=== PATIENT | female | born 1960 | race Caucasian/White ===

== ENCOUNTER 2017-04-12 05:34 | Inpatient (IN) | payer OTHER ==
[2017-04-12] MEDS: LACTATED RINGER'S 1,000 ML IV* (05:30)
[2017-04-12] MEDS ORDERED: GELATIN SIZE 100 SPONGE (07:08)
[2017-04-12] MEDS ORDERED: ROCURONIUM 50 MG INJ (07:28)
[2017-04-12] MEDS ORDERED: MIDAZOLAM 1 MG/ML 2 ML INJ (07:28)
[2017-04-12] MEDS ORDERED: PROPOFOL 20 ML (07:28)
[2017-04-12] MEDS ORDERED: CEFAZOLIN 1 GM INJ (07:28)
[2017-04-12] MEDS ORDERED: DEXAMETHASONE 4 MG/ML 1 ML INJ (07:28)
[2017-04-12] MEDS ORDERED: ONDANSETRON 4 MG INJ (07:28)
[2017-04-12] MEDS ORDERED: GLYCOPYRROLATE 0.4 MG INJ (07:28)
[2017-04-12] MEDS ORDERED: NEOSTIGMINE 3 MG/3 ML SYRINGE (07:28)
[2017-04-12] MEDS: BUPIVACAINE 0.25%/EPI (SDV) 30 ML INJ (08:44)
[2017-04-12] MEDS: POLYMYXIN/BACITRACIN 1L IRRIG (08:44)
[2017-04-12] MEDS: THROMBIN 5000 UNIT VIAL (08:44)
[2017-04-12] MEDS ORDERED: hydrALAzine 20 MG INJ IV (09:00)
[2017-04-12] MEDS ORDERED: ALBUTEROL 0.083% (NEB) 2.5 MG/3 ML AMP HHN (09:00)
[2017-04-12] MEDS ORDERED: HYDROmorphONE (0.2 MG/ML) 10ML SYG IV ×2 (09:00)
[2017-04-12] MEDS ORDERED: EPHEDrine SULFATE 50 MG/5 ML SYG IV (09:00)
[2017-04-12] MEDS ORDERED: IPRATROPIUM (NEB) 0.5 MG/2.5 ML AMP HHN (09:00)
[2017-04-12] MEDS ORDERED: OXYCODONE/ACETAMINOPHEN (5/325) TAB PO ×2 (09:00)
[2017-04-12] MEDS ORDERED: FENTAnyl 50 MCG/ML VIAL IV ×2 (09:00)
[2017-04-12] MEDS ORDERED: TRIMETHOBENZAMIDE 100 MG/ML VIAL IM (09:00)
[2017-04-12] MEDS ORDERED: LABETALOL HCL 20MG INJ IV (09:00)
[2017-04-12] MEDS ORDERED: DIPHENHYDRAMINE 50 MG INJ IV (09:00)
[2017-04-12] MEDS ORDERED: SUGAMMADEX SODIUM 200 MG/2 ML VIAL IV (11:59)
[2017-04-12] MEDS ORDERED: LABETALOL HCL 20MG INJ (11:59)
[2017-04-12] MEDS: VANCOMYCIN 1 GM (PMX) 250 ML IVPB ×2 (12:30→21:03)
[2017-04-12] MEDS ORDERED: HYDROCODONE/APAP (5/325) TAB PO (12:30)
[2017-04-12] MEDS ORDERED: ONDANSETRON 4 MG INJ IV (12:30)
[2017-04-12] MEDS ORDERED: NALOXONE (0.4 MG/ML) INJ IV (12:30)
[2017-04-12] MEDS ORDERED: morphine 1 MG/ML 30 ML (PCA) IV (12:30)
[2017-04-12] MEDS: FENTAnyl 50 MCG/ML VIAL IV (13:27)
[2017-04-12] MEDS: MIDAZOLAM 1 MG/ML 2 ML INJ IV (13:28)
[2017-04-12] MEDS: ONDANSETRON 4 MG INJ IV (13:28)
[2017-04-12] MEDS: MEPERIDINE 25 MG INJ IV (13:28)
[2017-04-12] MEDS: HYDROmorphONE 0.2 MG/ML PCA IV (13:40)
[2017-04-12] MEDS: HYDROmorphONE (0.2 MG/ML) 10ML SYG IV (14:42)
[2017-04-12] MEDS ORDERED: ONDANSETRON 4 MG TAB PO (18:00)
[2017-04-12] MEDS ORDERED: ZOLPIDEM 5 MG TAB PO (18:00)
[2017-04-12] MEDS: TIOTROPIUM 18 MCG CAPSULE INHA DEV INH (18:00)
[2017-04-12] MEDS: CALCIUM CARBONATE 1.25 GM TAB PO (21:00)
[2017-04-12] MEDS: SALMETEROL/FLUTICASONE 250/50 INHA INH (21:00)
[2017-04-12] MEDS: OXYBUTYNIN (XL) 5 MG TAB PO (21:00)
[2017-04-12] MEDS ORDERED: NON-FORMULARY/PATIENT OWN MED (Levocetirizine Dihydrochloride (Xyzal) 5 MG) PO (21:00)
[2017-04-12] MEDS: ALPRAZOLAM 1 MG TAB PO (21:38)
[2017-04-12] MEDS: DIPHENHYDRAMINE 25 MG CAP PO (21:40)
[2017-04-12] MEDS: traZODone 100 MG TAB PO (21:40)
[2017-04-12] MEDS: ATORVASTATIN 20 MG TAB PO (21:41)
[2017-04-12] MEDS: MONTELUKAST 10 MG TAB PO (21:41)
[2017-04-12] MEDS: TIZANIDINE 2 MG TAB PO (21:42)
[2017-04-13 05:48] LABS: HEMATOCRIT 35.7 % (37.0-47.0); HEMOGLOBIN 11.1 g/dl (12.0-16.0)
[2017-04-13 06:16] LABS: ANION GAP 9 (8-16); BLOOD UREA NITROGEN 10 mg/dl (7-20); CALCIUM 8.5 mg/dl (8.4-10.2); CARBON DIOXIDE 33 mmol/L (21-31); CHLORIDE 101 mmol/L (97-110); CREATININE 0.58 mg/dl (0.44-1.00); GLUCOSE 96 mg/dl (70-220); SODIUM 139 mmol/L (135-144)
[2017-04-13] MEDS: PANTOPRAZOLE (EC) 40 MG TAB PO (06:34)
[2017-04-13 06:35] LABS: IRON 34 ug/dl (35-150)
[2017-04-13 06:44] LABS: % IRON SATURATION 9 % SAT (22-52); TOTAL IRON BINDING CAPACITY 361 ug/dl (241-421)
[2017-04-13 07:51] LABS: THYROID STIMULATING HORMONE 0.519 MIU/L (0.465-4.680)
[2017-04-13 07:51] LABS: HEPATITIS B SURFACE ANTIGEN NEGATIVE (NEGATIVE)
[2017-04-13] MEDS: CALCIUM CARBONATE 1.25 GM TAB PO ×2 (08:25→21:13)
[2017-04-13] MEDS: SALMETEROL/FLUTICASONE 250/50 INHA INH ×2 (08:25→21:13)
[2017-04-13] MEDS: TIZANIDINE 2 MG TAB PO ×3 (08:26→21:14)
[2017-04-13] MEDS: ALPRAZOLAM 1 MG TAB PO ×2 (08:26→21:35)
[2017-04-13] MEDS: TIOTROPIUM 18 MCG CAPSULE INHA DEV INH (08:26)
[2017-04-13] MEDS: VALACYCLOVIR 500 MG TAB PO (08:27)
[2017-04-13] MEDS: LISINOPRIL 20 MG TAB PO (08:28)
[2017-04-13] MEDS ORDERED: NON-FORMULARY/PATIENT OWN MED (Vilazodone Hcl (Viibryd) 40 MG) PO (09:00)
[2017-04-13] MEDS ORDERED: ARMODAFINIL 150 MG PO (09:00)
[2017-04-13 09:15] LABS: HEPATITIS C VIRAL ANTIBODY REACTIVE (NEGATIVE)
[2017-04-13 09:43] LABS: ADD UMIC YES; UR ASCORBIC ACID NEGATIVE (NEGATIVE); UR BACTERIA FEW /HPF (NONE SEEN); UR BILIRUBIN (Dip) NEGATIVE (NEGATIVE); UR BLOOD (Dip) 2+ mg/dL (NEGATIVE); UR CLARITY CLEAR (CLEAR); UR COLOR YELLOW (YELLOW); UR GLUCOSE (Dip) NEGATIVE (NEGATIVE); UR KETONES (Dip) NEGATIVE (NEGATIVE); UR LEUKOCYTE ESTERASE (Dip) NEGATIVE Leu/ul (NEGATIVE); UR NITRITE (Dip) NEGATIVE (NEGATIVE); UR RBC 3 /HPF (0-5); UR SPECIFIC GRAVITY (Dip) 1.012 (1.003-1.030); UR TOTAL PROTEIN (Dip) NEGATIVE (NEGATIVE); UR UROBILINOGEN (Dip) NEGATIVE (NEGATIVE); UR WBC 2 /HPF (0-5)
[2017-04-13] MEDS ORDERED: [UNRECOGNIZED DRUG - REMARK] XX (10:30)
[2017-04-13] MEDS ORDERED: [UNRECOGNIZED DRUG - REMARK] XX (10:30)
[2017-04-13] MEDS: HYDROmorphONE 0.2 MG/ML PCA IV (10:57)
[2017-04-13] MEDS: [UNRECOGNIZED DRUG - REMARK] XX (15:30)
[2017-04-13] MEDS: LORATADINE 10 MG TAB PO (21:00)
[2017-04-13] MEDS: OXYBUTYNIN (XL) 5 MG TAB PO (21:00)
[2017-04-13] MEDS: DIPHENHYDRAMINE 25 MG CAP PO (21:13)
[2017-04-13] MEDS: ATORVASTATIN 20 MG TAB PO (21:14)
[2017-04-13] MEDS: traZODone 100 MG TAB PO (21:14)
[2017-04-13] MEDS: MONTELUKAST 10 MG TAB PO (21:14)
[2017-04-13] MEDS: SOD FERRIC GLUC COMPLX 125 MG in SOD CHLORIDE 0.9% 100 ML IVPB (21:23)
[2017-04-14] MEDS: HYDROmorphONE 0.2 MG/ML PCA IV ×2 (02:02→17:49)
[2017-04-14] MEDS: PANTOPRAZOLE (EC) 40 MG TAB PO (06:22)
[2017-04-14] MEDS: CALCIUM CARBONATE 1.25 GM TAB PO ×2 (08:42→20:17)
[2017-04-14] MEDS: SALMETEROL/FLUTICASONE 250/50 INHA INH ×2 (08:42→20:19)
[2017-04-14] MEDS: TIOTROPIUM 18 MCG CAPSULE INHA DEV INH (08:42)
[2017-04-14] MEDS: VALACYCLOVIR 500 MG TAB PO (08:42)
[2017-04-14] MEDS: LISINOPRIL 20 MG TAB PO (08:42)
[2017-04-14] MEDS: VENLAFAXINE (XR) 75 MG CAP PO (08:42)
[2017-04-14] MEDS: TIZANIDINE 2 MG TAB PO ×3 (08:43→20:17)
[2017-04-14] MEDS: DIPHENHYDRAMINE 25 MG CAP PO (20:17)
[2017-04-14] MEDS: MONTELUKAST 10 MG TAB PO (20:17)
[2017-04-14] MEDS: ATORVASTATIN 20 MG TAB PO (20:17)
[2017-04-14] MEDS: traZODone 100 MG TAB PO (20:17)
[2017-04-14] MEDS: SOD FERRIC GLUC COMPLX 125 MG in SOD CHLORIDE 0.9% 100 ML IVPB (20:24)
[2017-04-14] MEDS: OXYBUTYNIN (XL) 5 MG TAB PO (21:00)
[2017-04-14] MEDS: LORATADINE 10 MG TAB PO (21:00)
[2017-04-15] MEDS: PANTOPRAZOLE (EC) 40 MG TAB PO (05:28)
[2017-04-15] MEDS: [UNRECOGNIZED DRUG - OTHER] XX (07:25)
[2017-04-15] MEDS: ARMODAFINIL 150 MG XX (07:25)
[2017-04-15] MEDS: TIOTROPIUM 18 MCG CAPSULE INHA DEV INH (08:10)
[2017-04-15] MEDS: SALMETEROL/FLUTICASONE 250/50 INHA INH ×2 (08:10→20:22)
[2017-04-15] MEDS: OXYCODONE/ACETAMINOPHEN (10/325) TAB PO ×3 (08:11→20:24)
[2017-04-15] MEDS: VENLAFAXINE (XR) 75 MG CAP PO (08:11)
[2017-04-15] MEDS: VALACYCLOVIR 500 MG TAB PO (08:11)
[2017-04-15] MEDS: CALCIUM CARBONATE 1.25 GM TAB PO ×2 (08:12→20:24)
[2017-04-15] MEDS: LISINOPRIL 20 MG TAB PO (08:12)
[2017-04-15] MEDS: TIZANIDINE 2 MG TAB PO ×3 (08:12→20:23)
[2017-04-15] MEDS: ALPRAZOLAM 1 MG TAB PO ×2 (10:48→19:33)
[2017-04-15] MEDS: SOD FERRIC GLUC COMPLX 125 MG in SOD CHLORIDE 0.9% 100 ML IVPB (20:22)
[2017-04-15] MEDS: DIPHENHYDRAMINE 25 MG CAP PO (20:23)
[2017-04-15] MEDS: ATORVASTATIN 20 MG TAB PO (20:23)
[2017-04-15] MEDS: traZODone 100 MG TAB PO (20:24)
[2017-04-15] MEDS: LORATADINE 10 MG TAB PO (20:24)
[2017-04-15] MEDS: MONTELUKAST 10 MG TAB PO (20:24)
[2017-04-15] MEDS: OXYBUTYNIN (XL) 5 MG TAB PO (20:34)
[2017-04-16] MEDS: HYDROCODONE/APAP (5/325) TAB PO (01:39)
[2017-04-16] MEDS: ALPRAZOLAM 1 MG TAB PO ×2 (04:48→23:32)
[2017-04-16] MEDS: PANTOPRAZOLE (EC) 40 MG TAB PO (06:05)
[2017-04-16] MEDS: VALACYCLOVIR 500 MG TAB PO (09:17)
[2017-04-16] MEDS: OXYCODONE/ACETAMINOPHEN (10/325) TAB PO ×3 (09:18→19:59)
[2017-04-16] MEDS: LISINOPRIL 20 MG TAB PO (09:18)
[2017-04-16] MEDS: SALMETEROL/FLUTICASONE 250/50 INHA INH ×2 (09:19→20:50)
[2017-04-16] MEDS: VENLAFAXINE (XR) 75 MG CAP PO (09:19)
[2017-04-16] MEDS: TIZANIDINE 2 MG TAB PO ×3 (09:19→20:51)
[2017-04-16] MEDS: CALCIUM CARBONATE 1.25 GM TAB PO ×2 (09:20→20:51)
[2017-04-16] MEDS: TIOTROPIUM 18 MCG CAPSULE INHA DEV INH (09:20)
[2017-04-16] MEDS: MAGNESIUM CITRATE 300 ML BTL PO (11:26)
[2017-04-16] MEDS: DIPHENHYDRAMINE 25 MG CAP PO (20:50)
[2017-04-16] MEDS: ATORVASTATIN 20 MG TAB PO (20:50)
[2017-04-16] MEDS: LORATADINE 10 MG TAB PO (20:50)
[2017-04-16] MEDS: traZODone 100 MG TAB PO (20:51)
[2017-04-16] MEDS: MONTELUKAST 10 MG TAB PO (20:51)
[2017-04-16] MEDS: OXYBUTYNIN (XL) 5 MG TAB PO (20:52)
[2017-04-17] MEDS: OXYCODONE/ACETAMINOPHEN (10/325) TAB PO ×4 (04:13→20:20)
[2017-04-17] MEDS: PANTOPRAZOLE (EC) 40 MG TAB PO ×2 (06:00→07:32)
[2017-04-17] MEDS: TIZANIDINE 2 MG TAB PO ×3 (08:37→20:15)
[2017-04-17] MEDS: CALCIUM CARBONATE 1.25 GM TAB PO ×2 (08:37→20:18)
[2017-04-17] MEDS: VALACYCLOVIR 500 MG TAB PO (08:38)
[2017-04-17] MEDS: LISINOPRIL 20 MG TAB PO (08:38)
[2017-04-17] MEDS: SALMETEROL/FLUTICASONE 250/50 INHA INH ×2 (08:38→20:22)
[2017-04-17] MEDS: VENLAFAXINE (XR) 75 MG CAP PO (08:38)
[2017-04-17] MEDS: TIOTROPIUM 18 MCG CAPSULE INHA DEV INH (11:21)
[2017-04-17] MEDS: CYCLOBENZAPRINE 10 MG TAB PO (16:11)
[2017-04-17] MEDS: ATORVASTATIN 20 MG TAB PO (20:15)
[2017-04-17] MEDS: MONTELUKAST 10 MG TAB PO (20:16)
[2017-04-17] MEDS: traZODone 100 MG TAB PO (20:16)
[2017-04-17] MEDS: DIPHENHYDRAMINE 25 MG CAP PO (20:22)
[2017-04-17] MEDS: LORATADINE 10 MG TAB PO (21:00)
[2017-04-17] MEDS: OXYBUTYNIN (XL) 5 MG TAB PO (21:00)
[2017-04-17] MEDS: ALPRAZOLAM 1 MG TAB PO (21:41)
[2017-04-18] MEDS: OXYCODONE/ACETAMINOPHEN (10/325) TAB PO ×3 (02:11→20:21)
[2017-04-18] MEDS: SALMETEROL/FLUTICASONE 250/50 INHA INH ×2 (09:32→20:21)
[2017-04-18] MEDS: CALCIUM CARBONATE 1.25 GM TAB PO ×2 (09:33→20:20)
[2017-04-18] MEDS: TIZANIDINE 2 MG TAB PO ×3 (09:33→20:20)
[2017-04-18] MEDS: VENLAFAXINE (XR) 75 MG CAP PO (09:33)
[2017-04-18] MEDS: VALACYCLOVIR 500 MG TAB PO (09:33)
[2017-04-18] MEDS: LISINOPRIL 20 MG TAB PO (09:33)
[2017-04-18] MEDS: TIOTROPIUM 18 MCG CAPSULE INHA DEV INH (09:33)
[2017-04-18] MEDS: CYCLOBENZAPRINE 10 MG TAB PO ×2 (09:39→21:29)
[2017-04-18] MEDS: ALPRAZOLAM 1 MG TAB PO ×2 (12:49→21:29)
[2017-04-18] MEDS: DIPHENHYDRAMINE 25 MG CAP PO (20:20)
[2017-04-18] MEDS: ATORVASTATIN 20 MG TAB PO (20:20)
[2017-04-18] MEDS: MONTELUKAST 10 MG TAB PO (20:21)
[2017-04-18] MEDS: traZODone 100 MG TAB PO (20:21)
[2017-04-18] MEDS: OXYBUTYNIN (XL) 5 MG TAB PO (20:53)
[2017-04-18] MEDS: LORATADINE 10 MG TAB PO (20:53)
[2017-04-19] MEDS: CYCLOBENZAPRINE 10 MG TAB PO ×2 (03:25→21:13)
[2017-04-19] MEDS: OXYCODONE/ACETAMINOPHEN (10/325) TAB PO ×4 (03:25→20:07)
[2017-04-19] MEDS: PANTOPRAZOLE (EC) 40 MG TAB PO (06:15)
[2017-04-19] MEDS: SALMETEROL/FLUTICASONE 250/50 INHA INH ×2 (08:12→20:07)
[2017-04-19] MEDS: TIOTROPIUM 18 MCG CAPSULE INHA DEV INH (08:13)
[2017-04-19] MEDS: VENLAFAXINE (XR) 75 MG CAP PO (08:13)
[2017-04-19] MEDS: CALCIUM CARBONATE 1.25 GM TAB PO ×2 (08:14→20:06)
[2017-04-19] MEDS: VALACYCLOVIR 500 MG TAB PO (08:14)
[2017-04-19] MEDS: TIZANIDINE 2 MG TAB PO ×3 (08:14→20:06)
[2017-04-19] MEDS: LISINOPRIL 20 MG TAB PO (08:18)
[2017-04-19] MEDS: ACETAMINOPHEN 325 MG TAB PO (15:32)
[2017-04-19] MEDS: traZODone 100 MG TAB PO (20:06)
[2017-04-19] MEDS: MONTELUKAST 10 MG TAB PO (20:06)
[2017-04-19] MEDS: ATORVASTATIN 20 MG TAB PO (20:06)
[2017-04-19] MEDS: DIPHENHYDRAMINE 25 MG CAP PO (20:07)
[2017-04-19] MEDS: SOLIFENACIN 5 MG TAB PO (20:13)
[2017-04-19] MEDS: LORATADINE 10 MG TAB PO (21:00)
[2017-04-19] MEDS: ALPRAZOLAM 1 MG TAB PO (21:13)
[2017-04-20] MEDS: PANTOPRAZOLE (EC) 40 MG TAB PO (05:57)
[2017-04-20] MEDS: OXYCODONE/ACETAMINOPHEN (10/325) TAB PO ×4 (05:58→22:33)
[2017-04-20] MEDS: CALCIUM CARBONATE 1.25 GM TAB PO ×2 (09:21→20:57)
[2017-04-20] MEDS: SALMETEROL/FLUTICASONE 250/50 INHA INH ×2 (09:21→20:56)
[2017-04-20] MEDS: VALACYCLOVIR 500 MG TAB PO (09:21)
[2017-04-20] MEDS: VENLAFAXINE (XR) 75 MG CAP PO (09:21)
[2017-04-20] MEDS: TIZANIDINE 2 MG TAB PO ×3 (09:21→20:57)
[2017-04-20] MEDS: LISINOPRIL 20 MG TAB PO (09:22)
[2017-04-20] MEDS: CYCLOBENZAPRINE 10 MG TAB PO ×2 (09:26→22:33)
[2017-04-20] MEDS: ATORVASTATIN 20 MG TAB PO (20:57)
[2017-04-20] MEDS: MONTELUKAST 10 MG TAB PO (20:57)
[2017-04-20] MEDS: DIPHENHYDRAMINE 25 MG CAP PO (20:57)
[2017-04-20] MEDS: SOLIFENACIN 5 MG TAB PO (20:57)
[2017-04-20] MEDS: traZODone 100 MG TAB PO (20:57)
[2017-04-20] MEDS: ALPRAZOLAM 1 MG TAB PO (21:00)
[2017-04-20] MEDS: LORATADINE 10 MG TAB PO (21:00)
[2017-04-21] MEDS: OXYCODONE/ACETAMINOPHEN (10/325) TAB PO ×2 (04:00→09:37)
[2017-04-21] MEDS: PANTOPRAZOLE (EC) 40 MG TAB PO (06:45)
[2017-04-21] MEDS: CALCIUM CARBONATE 1.25 GM TAB PO (08:53)
[2017-04-21] MEDS: VENLAFAXINE (XR) 75 MG CAP PO (08:54)
[2017-04-21] MEDS: LISINOPRIL 20 MG TAB PO (08:54)
[2017-04-21] MEDS: SALMETEROL/FLUTICASONE 250/50 INHA INH (08:54)
[2017-04-21] MEDS: TIZANIDINE 2 MG TAB PO (08:54)
[2017-04-21] MEDS: VALACYCLOVIR 500 MG TAB PO (08:54)
== END 2017-04-21 10:23 | disposition home health service (06) | DRG 517 ==
LOC: REC 05:34 → MS1 14:06
PROC: 01NB0ZZ Release Lumbar Nerve, Open Approach (ICD-10-PCS; principal; 2017-04-12 07:30)
DX: M48.062 Spinal stenosis, lumbar region with neurogenic claudication (principal); I10 Essential (primary) hypertension; M51.86 Other intervertebral disc disorders, lumbar region; E66.9 Obesity, unspecified; Z68.34 Body mass index [BMI] 34.0-34.9, adult; M06.9 Rheumatoid arthritis, unspecified; K21.9 Gastro-esophageal reflux disease without esophagitis; F17.210 Nicotine dependence, cigarettes, uncomplicated; G89.4 Chronic pain syndrome; B18.2 Chronic viral hepatitis C; E78.00 Pure hypercholesterolemia, unspecified; N32.81 Overactive bladder; Z98.1 Arthrodesis status
CPT/HCPCS: 72114; 80048; 81001; 83540; 84443; 85014; 85018; 86803; 87086; 87340; 97110; 97116; 97162; 97530